=== PATIENT | male | born 1955 | race Caucasian/White ===

== ENCOUNTER 2019-05-29 12:13 | Day surgery (SDC) | payer BC ==
[2019-05-29] MEDS ORDERED: LIDOCAINE 2% MDV (20MG/ML) 20ML VIAL IV ONE (12:14)
[2019-05-29] MEDS ORDERED: GLUCAGON 1 MG/VIAL IV ONE (12:14)
[2019-05-29] MEDS ORDERED: PROPOFOL 10 MG/ML VIAL IV ONE (12:14)
--- NOTE | 2019-05-31 10:43 | Operative Note ---
OPERATION: COLONOSCOPY to the cecum with cold biopsy forceps polypectomy x2 and cold snare polypectomy x4. INDICATION: History of adenomatous polyps in the past. The patient returns at this time after 5 years for surveillance. ANESTHESIA: Intravenous sedation was administered by the department of anesthesiology and included Diprivan titrated to effect. PROCEDURE: Following informed consent from this alert individual including a discussion of the risks and benefits of the procedure and an opportunity for the patient to ask questions, the patient was in the left lateral decubitus position. A digital rectal examination was performed. No abnormalities were noted. Following this, the Olympus [id number] video colonoscope was inserted into the rectum without resistance. The rectal mucosa had a normal appearance with normal folds and distensibility. The colonoscope was advanced up through the colon to the level of the cecum without much difficulty. Throughout the bowel the mucosa appeared normal, the folds were normal, and the bowel was fairly well distensible. The cecum was defined by noting the appendiceal orifice and ileocecal valve. From the base of the cecum, the colonoscope was then slowly withdrawn. There was a total of 6 polyps noted. There were 5 removed from the ascending colon measuring between 3-6 mm in size. Three were removed with cold snare polypectomy and 2 with biopsy forceps. There was an additional 5-6 mm polyp removed from the transverse colon with cold snare polypectomy. All polyps were recovered. Diverticulosis was apparent in the sigmoid colon. The colonoscope was then drawn back into the rectum where retroflexion accomplished following air insufflation revealed small internal hemorrhoids. The instrumen was straightened and withdrawn. The patient tolerated the procedure well and was returned to the recovery area in stable condition. Overall, the colon preparation was good. IMPRESSION: 1. Five ascending colon polyps measuring between 3-6 mm in size, 3 removed with cold snare polypectomy and 2 with biopsy forceps. 2. A 6 mm transverse colon polyp removed with cold snare polypectomy. 3. Sigmoid diverticulosis. 4. Small internal hemorrhoids. RECOMMENDATIONS: The patient was advised he should receive a copy of his pathology report at home in the next 2-3 weeks. If not, he was asked to call my office to review the results of testing today. Further recommendations will be forthcoming pending those results. Followup will also be with Dr. Arellano. As always, thank you for allowing me to participate in the care of your patient. SOLEDAD
== END 2019-05-29 14:52 | disposition home or self-care (01) ==
LOC: HOP 12:13
PROVIDERS: ATTEND Internal Medicine Gastroenterology
DX: Z12.11 Encounter for screening for malignant neoplasm of colon (principal); Z86.010 Personal history of colon polyps; D12.2 Benign neoplasm of ascending colon; D12.3 Benign neoplasm of transverse colon; K57.30 Diverticulosis of large intestine without perforation or abscess without bleeding; K64.8 Other hemorrhoids; E11.9 Type 2 diabetes mellitus without complications; I10 Essential (primary) hypertension; E78.00 Pure hypercholesterolemia, unspecified
CPT/HCPCS: J1610